=== PATIENT | male | born 1995 | race African-American/Black ===

== ENCOUNTER 2018-08-25 18:49 | Emergency (ER) | payer OTHER ==
[~2018-08-25] VITALS: Ht 177.8 cm; Wt 63.6 kg
[~2018-08-25 18:49] MED LIST: BENADRYL25 MG OR
[2018-08-25 19:57] LABS: INFLUENZA A NONE DETECTED (NONE DETECT); INFLUENZA B NONE DETECTED (NONE DETECT)
[2018-08-25] MEDS ORDERED: AMOXICILLIN500 MG PO (19:58)
[2018-08-25 20:00] VITALS: BP 138/87
== END 2018-08-25 20:00 | disposition home or self-care (01) ==
LOC: ED 18:49
PROVIDERS: Emergency Medicine
DX: J02.9 Acute pharyngitis, unspecified (principal)

== ENCOUNTER 2022-09-08 09:37 | Emergency (ER) | payer SELFPAY ==
[~2022-09-08] VITALS: Ht 177.8 cm; Wt 85.0 kg
[~2022-09-08 09:37] MED LIST changes: +AMOXICILLIN500 MG PO
[2022-09-08] MEDS ORDERED: [UNRECOGNIZED DRUG - OTHER] TOP ×2 (09:49→09:50)
[2022-09-08 09:51] VITALS: BP 131/74
== END 2022-09-08 10:02 | disposition home or self-care (01) | DRG 951 ==
LOC: ED 09:37
DX: Z48.00 Encounter for change or removal of nonsurgical wound dressing (principal)